=== PATIENT | male | born 1950 | race Caucasian/White ===

== ENCOUNTER 2017-10-02 14:23 | Outpatient (CLI) | payer MEDICARE, OTHER ==
[2017-10-02] MEDS ORDERED: ZYRTEC10 MG ORAL (15:20)
--- NOTE | 2017-10-02 15:23 | GI Initial Consult Note ---
History of Present Illness General Date patient seen: Oct 02, 2017 Time patient seen: 15:18 Referring physician: Family member Reason for Consultation: Colonoscopy screening Present Illness HPI 67 year old male presents today for routine colonoscopy screening. Pt denies any abdominal pain, N/V/D or any other GI symptoms. No history of endoscopies or colonoscopies. Denies any unintentional weight loss or changes in dietary habits. No signs of abuse or neglect. Patient is not fall risk. Home Meds Reported Medications Cetirizine Hcl* (ZYRTEC*) 10 Mg Tablet, 10 MG ORAL DAILY Y, #30 TAB 0 Refills 10/02/17 Allergies: Coded Allergies: Pepper (Unverified Allergy, Severe, 10/02/17) skin allergy to pepper Patient History History Provided By: Patient, Medical Record [facility] Narrative Kidney stones Past Surgical History: tonsillectomy inguinal hernia repair Family History Narrative Brothers >> - rectal CA at age 75 and age 72. - prostate CA Social History: Denies: smoking, alcohol use, drug use, other Review of Systems All Other Systems: negative except mentioned in HPI Physical Exam T 98.5 BP 128/79 P 84 95 RA HT 5'6 WT 154.6 lbs Sp02 EP Interpretation: reviewed, normal General Appearance: well appearing, no apparent distress, alert Head: normocephalic EENT: PERRL/EOMI, normal ENT inspection Neck: supple Respiratory: normal breath sounds, no respiratory distress Cardiovascular: normal rate Gastrointestinal: normal inspection, non tender, soft, normal bowel sounds, non -distended Rectal: deferred Genitourinary: deferred Musculoskeletal: normal inspection, back normal Neurologic: normal inspection, alert, oriented x3, responsive Psychiatric: normal inspection, judgement/insight normal, memory normal Skin: normal inspection, normal color, no rash, warm/dry, palpation normal, well hydrated Lymphatic: normal inspection, no adenopathy GI: Plan Problems: (1) Colonoscopy planned Plan colonoscopy scheduled on 10/16/17. - CLD & (Nulytely/Suprep/Movi-Prep) prep instructions given and acknowledged by patient. - NPO @ RI day prior procedure explained. Seen with Dr. Dejesus. Thank you for this patient referral. Becka Inman N.P. Oct 02, 2017 15:23
== END 2017-10-02 14:55 | disposition home or self-care (01) ==
LOC: PAN 14:23
DX: Z12.11 Encounter for screening for malignant neoplasm of colon (principal); Z87.442 Personal history of urinary calculi; Z80.42 Family history of malignant neoplasm of prostate; Z80.0 Family history of malignant neoplasm of digestive organs
CPT/HCPCS: 99201

== ENCOUNTER 2017-10-16 06:46 | Day surgery (SDC) | payer MEDICARE, OTHER ==
[2017-10-16] VITALS (9 sets, daily range): BP systolic 116–134; BP diastolic 66–90
[~2017-10-16] VITALS: Ht 165.1 cm; Wt 70.3 kg
[~2017-10-16 06:46] MED LIST: ZYRTEC10 MG ORAL
--- NOTE | 2017-10-16 06:55 | Anethesia Preoperative Eval ---
Anesthesia Pre-op PMH/ROS General Date of Evaluation: Oct 16, 2017 Time of Evaluation: 06:54 Anesthesiologist: gagandeep ASA Score: ASA 3 Mallampati Score Class I : Soft palate, uvula, fauces, pillars visible Class II: Soft palate, uvula, fauces visible Class III: Soft palate, base of uvula visible Class IV: Only hard plate visible Mallampati Classification: Class II Surgeon: kwaku Diagnosis: colon screening Surgical Procedure: colonoscopy Anesthesia History: none Social History: smoking - nonsmoker Family History: no anesthesia problems Allergies: Coded Allergies: PEPPER (Unverified Allergy, Severe, 10/16/17) skin allergy to pepper Uncoded Allergies: spices (Allergy, Severe, 10/16/17) skin allergy, itching, redness Medications: see eMAR Past Medical History Cardiovascular: Reports: other - hypercholesterolemia Gastrointestinal/Genitourinary: Reports: other - kidney stones Musculoskeletal/Integumentary: Reports: OA Anesthesia Pre-op Phys. Exam Physician Exam Constitutional: NAD Neurologic: CN 2-12 intact Cardiovascular: RRR Respiratory: CTA Gastrointestinal: S/NT/ND Airway Exam Mallampati Score: Class II MO: full Neck: supple TMD: 2fb ROM: limited Teeth: intact Anesthesia Pre-op A/P Risk Assessment & Plan Assessment: asa3 Plan: mac Status Change Before Surgery: No Pre-Antibiotics Drug: ALEJO Lindsay Oct 16, 2017 06:55
[2017-10-16] MEDS ORDERED: Propofol 200mg/20ml IV ONE (09:00)
[2017-10-16] MEDS ORDERED: Lidocaine 1% MPF 10mg/ml 5ml ONE (09:00)
--- NOTE | 2017-10-16 09:03 | Pre-Procedure Note/Attestation ---
Pre-Procedure Note/Attestation Complete Prior to Procedure Planned Procedure: not applicable Procedure Narrative: colonoscopy Indications for Procedure Pre-Operative Diagnosis: screening Attestation I attest that I discussed the nature of the procedure; its benefits; risks and complications; and alternatives (and the risks and benefits of such alternatives ), prior to the procedure, with the patient (or the patient's legal client service representative). I attest that, if there was a reasonable possibility of needing a blood transfusion, the patient (or the patient's legal client service representative) was given the [facility] standardized written summary, pursuant to the [place] Blood Safety Act ([place] Health and Safety Code # 1645, as amended). I attest that I re-evaluated the patient just prior to the surgery and that there has been no change in the patient's H&P, except as documented below: MAURY GAINES Oct 16, 2017 09:03
--- NOTE | 2017-10-16 09:04 | Short Stay Surgery H&P ---
History of Present Illness History of Present Illness Chief Complaint see recent consult note HPI Marcus Sheriff is a 67 year old male who was admitted on for Colon Screening Patient History Allergies: Coded Allergies: PEPPER (Unverified Allergy, Severe, 10/16/17) skin allergy to pepper Uncoded Allergies: spices (Allergy, Severe, 10/16/17) skin allergy, itching, redness PAST MEDICAL HISTORY: Past Surgeries: Social History: Medication History Scheduled PRN Cetirizine Hcl* (Zyrtec*), 10 MG ORAL DAILY PRN, (Reported) Physical Exam Vital Signs Last Vital Signs Date Time Temp Pulse Resp B/P (MAP) Pulse Ox O2 Delivery O2 Flow Rate FiO2 10/16/17 07:18 98.4 79 18 128/90 99 Room Air Plan Attestation Are the patient's medical conditions optimized for surgery? MAURY GAINES Oct 16, 2017 09:04
--- NOTE | 2017-10-16 09:37 | Endoscopy Procedure Note ---
Endoscopy Procedure Note General Indication for Procedure: screening Procedures Performed: colonoscopy Operative Findings/Diagnosis: one polyp Specimen: yes Pt Tolerated Procedure Well: Yes Estimated Blood Loss: none Anesthesia Anesthesiologist: malou Anesthesia: MAC Inserted Devices Implant(s) used?: No Quality Quality of Bowel Preparation: Excellent Did scope reach the cecum?: Yes Was there any complications?: No GI Core Measures 50 yrs or older w/o bx or poly: No 10yrs. F/U not recommended: Yes If not recommended, why?: Above average risk 10 yrs. F/U needed: Yes 18 years or older w/prev. colo: No MAURY GAINES Oct 16, 2017 09:37
[2017-10-16] MEDS ORDERED: Atropine Inj 1mg/10ml Syr IV PRN (09:45)
[2017-10-16] MEDS ORDERED: fentaNYL 100 mcg/2 mL IV PRN (09:45)
[2017-10-16] MEDS ORDERED: Midazolam 2mg/2ml Inj IVP PRN (09:45)
[2017-10-16] MEDS ORDERED: DiphenhydrAMINE 50mg/ml Inj IVP PRN (09:45)
--- NOTE | 2017-10-16 13:41 | 48 Hour Post Anesthesia Eval ---
Post Anesthesia Evaluation Procedure: colonoscopy Date of Evaluation: Oct 16, 2017 Time of Evaluation: 10:01 Blood Pressure Systolic: 120 0: 78 Pulse Rate: 66 Respiratory Rate: 18 Temperature (Fahrenheit): 98.5 O2 Sat by Pulse Oximetry: 100 Airway: patent Nausea: No Vomiting: No Pain Intensity: 0 Hydration Status: adequate Cardiopulmonary Status: stable Mental Status/LOC: patient returned to baseline Post-Anesthesia Complications: none Follow-up care needed: N/A ALEJO LIMA Oct 16, 2017 13:41
--- NOTE | 2017-10-16 13:41 | Immediate Post-Op Evaluation ---
Immediate Post-Op Evalulation Immediate Post-Op Evalulation Procedure: colonoscopy Date of Evaluation: Oct 16, 2017 Time of Evaluation: 09:59 IV Fluids: 600ml 0.9ns Blood Products: none Estimated Blood Loss: negligible Blood Pressure Systolic: 146 Blood Pressure Diastolic: 73 Pulse Rate: 64 Respiratory Rate: 18 O2 Sat by Pulse Oximetry: 100 Temperature (Fahrenheit): 98.5 Pain Score (1-10): 0 Nausea: No Vomiting: No Complications none Patient Status: awake, reacts, patent Hydration Status: adequate Drug: ALEJO Lindsay Oct 16, 2017 13:41
--- NOTE | 2017-10-16 15:00 | Procedure Note ---
DATE OF PROCEDURE: 10/16/2017 SURGEON: Bipin Dejesus M.D. PROCEDURE: Colonoscopy with biopsy. ANESTHESIA: Per Dr. Dalton. INSTRUMENT: Olympus adult flexible colonoscope. INDICATIONS: Screening colonoscopy. The procedure, risks, benefits, and possible consequences, including hemorrhage, aspiration, perforation and infection, and alternative treatments, were explained to the patient/legal guardian by Dr. Bipin Dejesus and the patient/legal guardian understood and accepted these risks. PROCEDURE IN DETAIL: After informed consent was obtained and the patient was adequately sedated, first rectal exam was performed, which was normal. Then, the scope was advanced from the rectum into the cecum and then subsequently into terminal ileum. Quality of prep was excellent. The patient had one diminutive polyp in the cecum, which was biopsied and removed with the cold biopsy forceps technique. There was no further polyp seen in this colonoscopic examination. There was evidence of diverticulosis both in the right and left colon, more prominent in the sigmoid area. No obvious diverticulitis. Retroflexion of rectum showed evidence of few medium-sized nonbleeding internal hemorrhoids. The patient tolerated the procedure very well without any complication. SUMMARY OF FINDINGS: 1. One diminutive polyp in the cecum. 2. Diverticulosis. 3. Internal hemorrhoids. RECOMMENDATIONS: 1. Follow up biopsy results and treat accordingly. 2. We will recommend repeat colonoscopy in five years. Bpiin Dejesus M.D. DR: ANISH JOB#: [id number] CC:
--- NOTE | 2017-10-17 08:31 | Cardiology Report ---
APPROVED REPORT EKG Measurement Heart [id number] Normal sinus rhythm Normal ECG
== END 2017-10-16 11:00 | disposition home or self-care (01) ==
LOC: GAS 06:46
DX: Z12.11 Encounter for screening for malignant neoplasm of colon (principal); K63.5 Polyp of colon; K57.90 Diverticulosis of intestine, part unspecified, without perforation or abscess without bleeding; K64.8 Other hemorrhoids; E78.00 Pure hypercholesterolemia, unspecified; Z87.442 Personal history of urinary calculi; M19.90 Unspecified osteoarthritis, unspecified site
CPT/HCPCS: 45380; 93005; J2704; 94003; 94150

== ENCOUNTER 2017-10-26 14:32 | Outpatient (CLI) | payer MEDICARE, OTHER ==
--- NOTE | 2017-10-26 16:23 | GI Progress Note ---
Assessment/Plan Problems: (1) Diverticulosis ICD Codes: K57.90 - Diverticulosis of intestine, part unspecified, without perforation or abscess without bleeding SNOMED: 00495885 (2) Polyp, colonic ICD Codes: K63.5 - Polyp of colon SNOMED: 30973678 (3) Hemorrhoids ICD Codes: K64.9 - Unspecified hemorrhoids SNOMED: 70913810 Status: stable Status Narrative Seen with Dr. Dejesus. Assessment/Plan colonoscopy SUMMARY OF FINDINGS: 1. One diminutive polyp in the cecum. 2. Diverticulosis. 3. Internal hemorrhoids. RECOMMENDATIONS: 1. Follow up biopsy results and treat accordingly. >> negative 2. We will recommend repeat colonoscopy in five years RTC prn Subjective Gastrointestinal/Abdominal: Reports: no symptoms Objective T 97.8 BP 126/76 HR 72 96 RA General Appearance: WD/WN, no apparent distress, alert Cardiovascular: normal rate Respiratory/Chest: normal breath sounds, no respiratory distress Abdominal Exam: normal bowel sounds, non tender, soft Extremities: normal range of motion, non-tender Becka Inman N.P. Oct 26, 2017 16:23
== END 2017-10-26 15:04 | disposition home or self-care (01) ==
LOC: PAN 14:32
DX: K57.90 Diverticulosis of intestine, part unspecified, without perforation or abscess without bleeding (principal); K63.5 Polyp of colon; K64.9 Unspecified hemorrhoids
CPT/HCPCS: 99211